=== PATIENT | female | born 1935 | race Caucasian/White ===

== ENCOUNTER 2019-11-27 08:48 | Outpatient (CLI) | payer MEDICARE, BC, SELFPAY | END 2019-11-27 08:49 | disposition home or self-care (01) | PROVIDERS: Visit Provider Nurse Practitioner Family | DX: I96 Gangrene, not elsewhere classified (principal); L97.821 Non-pressure chronic ulcer of other part of left lower leg limited to breakdown of skin | CPT/HCPCS: 11042; 87070; 87077; 87176; 87186; 87205; 99203 ==

== ENCOUNTER 2019-12-01 12:30 | Outpatient (CLI) | payer MEDICARE, BC, SELFPAY ==
--- NOTE | 2019-12-01 | USCV_ITS ---
[id number] Age: 84 Gender: F : 1935 Exam Date: 12/01/2019 13:24 Ordering Phys: Crissy Galeana Technologist: Kait Bazan [place]am [place] [facility] [place]: HISTORY: Non healing areas bilateral legs PROCEDURES: The venous duplex Doppler examination of both lower extremities was performed in the standard fashion. The following venous structures were evaluated: common femoral vein,the greater saphenous vein, superficial femoral vein, and the popliteal vein and ptvbilateral duplex Venous Insufficiency study of the Deep and Superficial systems was carried out according to normal protocol with the patient in supine positon for deep system and dependent position for the superficial system. FINDINGS: The mid SSV's were not studied. The pt has bleeding open wounds in that area. There was no reflux seen through the vessels and no dvt seen. CONCLUSIONS No evidence of DVT in the above-mentioned identifiable veins. No significant venous reflux on either side Dr Nikita Washburn MD [facility] (Electronically Signed) Final Date: 01 December 2019 18:59 S
== END 2019-12-01 12:31 | disposition home or self-care (01) ==
PROVIDERS: Visit Provider Nurse Practitioner Family
DX: M79.604 Pain in right leg (principal); M79.605 Pain in left leg; L97.929 Non-pressure chronic ulcer of unspecified part of left lower leg with unspecified severity; L97.919 Non-pressure chronic ulcer of unspecified part of right lower leg with unspecified severity
CPT/HCPCS: 93970

== ENCOUNTER 2019-12-02 13:55 | Outpatient (CLI) | payer MEDICARE, BC, SELFPAY ==
--- NOTE | 2019-12-02 14:13 | USCV_ITS ---
OCTAVIO GOMES Age: 84 Gender: F : 1935 Exam Date: 12/02/2019 14:08 Ordering Phys: Crissy Galeana RN Technologist: Exam Location: [facility] [place] Indication: NON HEALING ULCER RIGHT LEFT Brachial 139.00 mmHg Brachial 151.00 mmHg Pressure (mmHg) Waveform Pressure (mmHg) Waveform 95.00 Pre-Exercise Toe Pressure 144.00 0.63 Pre-Exercise Toe/Brachial Index 0.95 FINDINGS Normal TBI on the left side Slightly diminished TBI on the right side PVR waveforms showing loss of dicrotic notch, bilaterally CONCLUSIONS Features of mild peripheral artery disease in the right side No significant arterial obstruction on the left side, based on the TBI Dr Nikita Washburn MD [facility] (Electronically Signed) Final Date: 02 December 2019 18:24 S
== END 2019-12-02 13:56 | disposition home or self-care (01) ==
LOC: RAD 14:03
PROVIDERS: PCP Family Medicine; Visit Provider Nurse Practitioner Family
DX: M79.604 Pain in right leg (principal); M79.605 Pain in left leg; L97.929 Non-pressure chronic ulcer of unspecified part of left lower leg with unspecified severity; L97.919 Non-pressure chronic ulcer of unspecified part of right lower leg with unspecified severity
CPT/HCPCS: 93923

== ENCOUNTER 2019-12-05 08:09 | Outpatient (CLI) | payer MEDICARE, BC, SELFPAY | END 2019-12-05 08:10 | disposition home or self-care (01) | LOC: WOUND 08:10 | PROVIDERS: PCP Family Medicine; Visit Provider Nurse Practitioner Family | DX: I96 Gangrene, not elsewhere classified (principal); L97.821 Non-pressure chronic ulcer of other part of left lower leg limited to breakdown of skin | CPT/HCPCS: 99214 ==